=== PATIENT | male | born 1935 | race Caucasian/White ===

== ENCOUNTER → 2016-08-06 | Outpatient (CLI) | payer OTHER | LOC: FIMAGING 07:40 | PROVIDERS: ATTEND Orthopaedic Surgery | DX: Z01.818 Encounter for other preprocedural examination (principal); M17.11 Unilateral primary osteoarthritis, right knee; I73.9 Peripheral vascular disease, unspecified ==

== ENCOUNTER 2016-08-07 07:15 | Observation (INO) | payer OTHER ==
[2016-08-28] MEDS ORDERED: LR 1,000 ML IV ONE (06:06)
[2016-08-28] MEDS ORDERED: LIDOCAINE 1% 5 ML SDV ID PRN (06:06)
[2016-08-28] MEDS ORDERED: DEXAMETHASONE 4 MG/ML VIAL ONE (06:11)
[2016-08-28] MEDS ORDERED: FAMOTIDINE 20 MG TAB ONE (06:11)
[2016-08-28] MEDS ORDERED: ACETAMINOPHEN 325 MG TAB ONE (06:12)
[2016-08-28] MEDS ORDERED: CEFAZOLIN 2 GM/DEXTROSE/100 ML BAG IV ONE (06:12)
[2016-08-28] MEDS ORDERED: LIDOCAINE 1% 5 ML SDV ONE (06:12)
[2016-08-28] MEDS ORDERED: TRANEXAMIC ACID 3,000 MG/50 ML BAG IRR ONE (06:35)
[2016-08-28] MEDS ORDERED: VANCOMYCIN 1 GM VIAL ONE (06:35)
[2016-08-28] MEDS ORDERED: MIDAZOLAM 2 MG/2 ML VIAL ONE (06:58)
[2016-08-28] MEDS ORDERED: ROPI/epiNEPH/KETOROLAC JOINT COCKTAIL IU ONE (07:00)
[2016-08-28] MEDS ORDERED: CHLORHEXIDINE GLUC HIBICLENS 118 ML BTL TP ONE (07:00)
[2016-08-28] MEDS ORDERED: TRANEXAMIC ACID 3,000 MG in NS 50 ML IRR ONE (07:00)
[2016-08-28] MEDS ORDERED: DEXAMETHASONE 4 MG/ML VIAL IVP ONE (07:00)
[2016-08-28] MEDS ORDERED: FAMOTIDINE 20 MG TAB PO ONE (07:00)
[2016-08-28] MEDS ORDERED: ACETAMINOPHEN 325 MG TAB PO ONE (07:00)
[2016-08-28] MEDS ORDERED: CEFAZOLIN 2 GM/DEXTR 100 ML IV ONE (07:00)
[2016-08-28] MEDS ORDERED: ONDANSETRON 4 MG/2 ML VIAL ONE (07:07)
[2016-08-28] MEDS ORDERED: LIDOCAINE 2% 100 MG/5 ML SYR ONE (07:07)
[2016-08-28] MEDS ORDERED: PROPOFOL/EMULSION 500 MG/50 ML BOTTLE IV ONE (07:07)
[2016-08-28] MEDS ORDERED: fentaNYL 100 MCG/2 ML INJ ONE (07:07)
[2016-08-28] MEDS ORDERED: BUPIVACAINE 0.25% 30 ML SDV ONE (07:10)
[2016-08-28] MEDS ORDERED: BUPIVACAINE/EPI 0.5% 30 ML SDV ONE (07:10)
[2016-08-28] MEDS ORDERED: BUPIVACAINE 0.5% 30 ML SDV ONE (07:11)
[2016-08-28] MEDS ORDERED: LIDOCAINE 2% JELLY 5 ML TUBE ONE (07:23)
[2016-08-28] MEDS ORDERED: epHEDrine SULFATE 10 MG/ML SYR ONE (07:54)
[2016-08-28] MEDS ORDERED: PROPOFOL 200 MG/20 ML VIAL ONE (08:01)
[2016-08-28] MEDS ORDERED: PROMETHAZINE HCL 25 MG SUPPR PR PRN (08:29)
[2016-08-28] MEDS ORDERED: MAGNESIUM HYDROXIDE 30 ML UDCUP PO PRN (08:29)
[2016-08-28] MEDS ORDERED: LACTULOSE 20 GM/30 ML UDCUP PO PRN (08:29)
[2016-08-28] MEDS ORDERED: PHARMACY PAIN CONSULT 1 EA MISC PRN (08:29)
[2016-08-28] MEDS ORDERED: METOCLOPRAMIDE 10 MG/2 ML VIAL IVP PRN (08:29)
[2016-08-28] MEDS ORDERED: ONDANSETRON DISINTEGRATING 4 MG TAB PO PRN (08:29)
[2016-08-28] MEDS ORDERED: CYCLOBENZAPRINE 10 MG TAB PO PRN (08:29)
[2016-08-28] MEDS ORDERED: TEMAZEPAM 15 MG CAP PO PRN (08:29)
[2016-08-28] MEDS ORDERED: diphenhydrAMINE 25 MG CAP PO PRN (08:29)
[2016-08-28] MEDS ORDERED: POLYETHYLENE GLYCOL 3350 17 GM PKT PO PRN (08:29)
[2016-08-28] MEDS ORDERED: ONDANSETRON 4 MG/2 ML VIAL IVP PRN (08:29)
[2016-08-28] MEDS ORDERED: DIPHENOXYLATE/ATROPINE LOMOTIL 1 TAB PO PRN (08:29)
[2016-08-28] MEDS ORDERED: BISACODYL 10 MG SUPP PR PRN (08:29)
--- NOTE | 2016-08-28 08:29 | POSTOPPROG ---
Post Op Note Date of Operation: 08/28/16 Surgeon: Karo Pack [employer] Coordinator: patito pack Anesthesiologist: dr. guallpa Anesthesia: Spinal, Other (Specify) (adductor canal block) Pre-op Diagnosis: right knee OA Post-op Diagnosis: same Indication: right knee pain due to OA that failed conservative measures Procedure: R med MPL robot assisted Findings: severe knee OA Inf/Abcess present in the surg proc area at time of surgery?: No EBL: 50-100
[2016-08-28] MEDS ORDERED: LR 1,000 ML IV SCH (08:30)
[2016-08-28] MEDS: SENNOSIDES/DOCUSATE SODIUM TAB PO SCH ×2 (10:30→20:46)
[2016-08-28] MEDS: ACETAMINOPHEN 325 MG TAB PO SCH ×3 (11:39→23:37)
[2016-08-28] MEDS: oxyCODONE IR 5 MG TAB PO PRN ×2 (12:51→20:46)
[2016-08-28] MEDS: ceFAZolin 2 GM/DEXTROSE 100 ML IV SCH ×2 (14:56→20:46)
[2016-08-28] MEDS ORDERED: WARFARIN SODIUM 5 MG TAB PO SCH (16:00)
[2016-08-28] MEDS: FAMOTIDINE 20 MG TAB PO SCH (20:46)
[2016-08-28] MEDS ORDERED: LISINOPRIL 10 MG TAB PO SCH (21:00)
[2016-08-28] MEDS ORDERED: ATORVASTATIN CALCIUM 10 MG TAB PO SCH (21:00)
[2016-08-29] MEDS: ACETAMINOPHEN 325 MG TAB PO SCH ×2 (05:15→11:19)
[2016-08-29 05:35] LABS: INR 1.11 (0.83-1.16); PROTIME(PATIENT) 14.2 SEC (12.0-15.0)
[2016-08-29 06:03] LABS: ANION GAP 8 mEq/L (8-16); CARBON DIOXIDE 24 mEq/l (22-31); CHLORIDE 109 mEq/L (97-110); GLOMERULAR FILTRATION RATE > 60; GLUCOSE 111 mg/dL (70-100); POTASSIUM 4.3 mEq/L (3.5-5.2); SODIUM 141 mEq/L (134-144)
[2016-08-29] MEDS: oxyCODONE IR 5 MG TAB PO PRN ×2 (06:53→11:20)
[2016-08-29] MEDS ORDERED: ENOXAPARIN 40 MG/0.4 ML SYR SC SCH (09:00)
[2016-08-29] MEDS: SENNOSIDES/DOCUSATE SODIUM TAB PO SCH (09:49)
[2016-08-29] MEDS: FAMOTIDINE 20 MG TAB PO SCH (09:50)
[2016-08-29 11:10] VITALS: BP 139/71; PULSE 49; RESP 18; TEMP 97.6; O2SAT 91
--- NOTE | 2016-08-29 13:33 | SOAPPROG ---
SOAP Progress Note Assessment/Plan: Assessment: Patient is doing well POD 1 s/p R med MPL Pain management: pain is well controlled on oral pain meds. VTE ppx: recommend coumadin and lovenox, cont AL and SCDs Anemia: level is expected initially postop. Asymptomatic. Continue to monitor D/c planning: d/c to home today pending release from PT Plan: 08/29/16 13:32 Subjective: Niranjan is resting comfortably, doing well, denies SOB, chest pain and N/V Objective: Vital Signs Temp Pulse Resp BP Pulse Ox 36.4 C 49 L 18 139/71 H 91 L 08/29/16 11:09 08/29/16 11:09 08/29/16 11:09 08/29/16 11:09 08/29/16 11:09 Laboratory Results 08/29/16 05:18 08/29/16 05:18 08/28/16 08/29/16 08/30/16 05:59 05:59 05:59 Intake Total 2605 Output Total 1550 Balance 1055 PT 14.2 SEC (12.0-15.0) 08/29/16 05:18 INR 1.11 (0.83-1.16) 08/29/16 05:18 RLE:incision dressing is clean and dry, NVI, +pf/df ICD10 Worksheet Patient Problems: Problems Problem Status Onset Primary localized osteoarthritis of right knee Acute
--- NOTE | 2016-08-29 13:48 | GOP ---
[f rep st] OPERATIVE REPORT DATE OF OPERATION: 08/28/2016 SURGEON: Tere Corona MD ROLL SETTER: BLANCA Kinsey ANESTHESIA: Spinal. PREOPERATIVE DIAGNOSIS: Right knee osteoarthritis. POSTOPERATIVE DIAGNOSIS: Right knee osteoarthritis. PROCEDURE PERFORMED: Right medial compartment partial knee replacement with computer navigation and robotic assist. FINDINGS: ESTIMATED BLOOD LOSS: 30 cc. INDICATIONS: This is a 81-year-old male with progressive pain of the right knee unresponsive to con servative care. The risks and benefits of surgical intervention were explained in detail. DESCRIPTION OF PROCEDURE: The patient was brought to the operating room and placed on the table in supine position. Spinal anesthesia was induced without difficulty. A pneumatic tourniquet was appli ed about the right proximal thigh and the leg was prepped and draped in sterile fashion. Attention was turned first to the distal aspect of the right femur. At 3 cm proximal to the lateral rise of t he femur, 2 percutaneous half pins were placed for fixation of the femoral array. In a similar fash ion, 2 pins were placed anterolateral on the tibia for fixation of the tibial array. External land marking and registration of the hip center was performed without difficulty. After exsanguination by elevation, the tourniquet was inflated to mmHg. Incision was made from the tibial tuberosity to the superior pole of the patella. Dissection was ca rried out through the subcutaneous tissue to the deep fascia using Bovie electrocautery for hemostas is. Medial parapatellar arthrotomy was carried out to the superior pole of the patella. The medial collateral ligament was elevated and the infrapatellar fat pad was resected. Internal femoral and tibial registration was carried out without difficulty and the femoral and tibial checkpoints were p laced and verified for accuracy. Attention was turned to the femur. The foot print for the size 5 femoral component was cut with the 6 mm bur using the [employer] robotic system and verified for accuracy against the CT based plan. The hol e was cut for the femoral post. In a similar fashion, the 6 mm bur was used to cut the foot print f or the size 6 tibial component using the JOSE system and verified for accuracy against the CT based p bryanna. Attention was turned to the posterior aspect of the knee and remnants of the medial meniscus were ex cised. The posterior capsule was injected with ropivacaine, epinephrine and Toradol. Trial reducti on was carried out and there was excellent range of motion, alignment and stability using the size 5 femoral component and the size 6 tibial component. 6 x 8 mm polyethylene. All trials were then removed. The joint was thoroughly irrigated and carefully dried. One package of cement and 1 gram of vancomycin were mixed in the vacuum mixer and placed on the fixation surface s of all components. The components were implanted and all excess cement was thoroughly removed. I mplant placement was verified against the CT view plan and found to be excellent. The tourniquet was deflated and all bleeders were coagulated. The wound was thoroughly irrigated an d closed using interrupted sutures of 2-0 Vicryl for the joint capsule. The subcu was closed with 3 -0 Vicryl and the skin with 4-0 Monocryl. Dermabond and Steri-Strips were applied, followed by a co mpressive dressing. The patient was then moved from the operating room to the recovery room in good condition, having tolerated the procedure well. CASE CLASSIFICATION: Clean. /[id number]/MODL
--- NOTE | 2016-08-29 14:32 | GDS ---
[f rep st] DISCHARGE SUMMARY ADMISSION DIAGNOSIS: Right knee osteoarthritis. DISCHARGE DIAGNOSIS: Right knee osteoarthritis. PROCEDURE: Right partial knee arthroplasty, medial compartment, robot assisted. VTE PROPHYLAXIS: Coumadin and Lovenox recommended. BRIEF DESCRIPTION OF HOSPITAL STAY: Patient was admitted for an elective joint arthroplasty. The p atient tolerated the procedure well and has passed physical therapy. The patient was given appropri ate antibiotic prophylaxis and venous thromboembolism prophylaxis. The patient's pain was well cont rolled on oral pain medication, patient was holding down food, and had urinated. Decision was made to discharge the patient. The patient was given post-operative prescriptions pre-operatively. PLAN: Please follow up as scheduled in Dr. Corona's office September 24 at 9:30 a.m. /[id number]/MODL
== END 2016-08-29 11:30 | disposition home or self-care (01) ==
LOC: F3N 08-28 05:56 → INTOOBSV 08-28 05:56 → F3N 08-28 09:42
PROVIDERS: ADMIT Orthopaedic Surgery; ATTEND Orthopaedic Surgery
PROC: 0SRC0JZ Replacement of Right Knee Joint with Synthetic Substitute, Open Approach (ICD-10-PCS; principal; 2016-08-28 07:15)
PROC: 8E0YXBG Computer Assisted Procedure of Lower Extremity, With Computerized Tomography (ICD-10-PCS; principal; 2016-08-28 07:15)
PROC: 8E0Y0CZ Robotic Assisted Procedure of Lower Extremity, Open Approach (ICD-10-PCS; principal; 2016-08-28 07:15)
DX: M17.11 Unilateral primary osteoarthritis, right knee (principal); Z85.46 Personal history of malignant neoplasm of prostate
CPT/HCPCS: 27446; 73560; 97116; 97161; 97165; 97530; C1713; C1776; G0378; G8978; G8979; G8980; G8987; G8988; G8989; J0171; J0690; J1100; J1650; J1885; J2001; J2250; J2405; J2704; J2795; J3010; J3370